=== PATIENT | male | born 1955 | race African-American/Black ===

== ENCOUNTER 2024-11-28 07:47 | Day surgery (SDC) | payer OTHER ==
[2024-11-23 10:51] VITALS: BMI 27.9
[2024-11-28 10:15] VITALS: TEMP 98
[2024-11-28 10:17] VITALS: RESP 18
[2024-11-28 10:19] VITALS: BP 121/66; PULSE 77
== END 2024-11-28 10:56 | disposition home or self-care (01) ==
LOC: FASU-ENDO 07:47
PROVIDERS: ATTEND Internal Medicine Gastroenterology
PROC: 0DBK8ZX Excision of Ascending Colon, Via Natural or Artificial Opening Endoscopic, Diagnostic (ICD-10-PCS; principal; 2024-11-28 09:27)
DX: Z12.11 Encounter for screening for malignant neoplasm of colon (principal); D12.2 Benign neoplasm of ascending colon; K57.30 Diverticulosis of large intestine without perforation or abscess without bleeding
CPT/HCPCS: 82962; 88305-TC